=== PATIENT | male | born 1965 | race Caucasian/White ===

== ENCOUNTER 2018-10-17 10:59 | Emergency (ER) | payer BC, MEDICAID ==
[2018-10-17] MEDS ORDERED: Ciproflox/Dexameth OTIC.SUSP* 7.5 ML BTL RIGHT EAR ONE (12:07)
--- NOTE | 2018-10-17 12:07 | ED ---
Throat Pain/Nasal Congestion - HPI Summary HPI Summary: 52-year-old male presents with right ear pain for the past 4 days. He had decreased hearing in his right ear. He states he tried debrox without relief. He denies any sinus congestion. No fevers. No chest pain shortness breath. No other symptoms. Denies any history of ear infections. - History of Current Complaint Chief Complaint: EDEarPain Time Seen by Provider: 10/17/18 11:38 - Allergies/Home Medications Allergies/Adverse Reactions: Allergies Allergy/AdvReac Type Severity Reaction Status Date / Time No Known Allergies Allergy Verified 10/17/18 12:15 PMH/Surg Hx/FS Hx/Imm Hx Endocrine/Hematology History: Denies: Hx Diabetes, Hx Thyroid Disease Cardiovascular History: Denies: Hx Angina, Hx Coronary Artery Disease, Hx Hypercholesterolemia, Hx Hypertension, Hx Myocardial Infarction, Hx Pacemaker/ICD, Hx Peripheral Vascular Disease, Hx Valvular Heart Disease Respiratory History: Denies: Hx Asthma, Hx Chronic Obstructive Pulmonary Disease (COPD) History: Reports: Hx Benign Prostatic Hyperplasia, Other Problems/ Disorders - HX OF ENLARGED PROSTATE Denies: Hx Renal Disease Musculoskeletal History: Reports: Hx Arthritis, Hx Orthopedic Injury - right shoulder, Other Musculoskeletal History - CERVICAL SPONDYLOSIS Denies: Hx Rheumatoid Arthritis, Hx Osteoporosis Sensory History: Reports: Hx Contacts or Glasses Denies: Hx Hearing Aid Opthamlomology History: Reports: Hx Contacts or Glasses Neurological History: Denies: Hx Headaches, Hx Seizures, Hx Transient Ischemic Attacks (TIA) Psychiatric History: Denies: Hx Anxiety, Hx Depression, Hx Panic Disorder - Surgical History Surgery Procedure, Year, and Place: STERNAL SURGERY A CHILD. LEFT KNEE SCOPING 1992, [facility] – [place]. EYE MUSCLE SURGERY A CHILD. LEFT HERNIA REPAIR MANY YRS AGO A CHILD, [facility] – [place]. 12/05/2014 RIGHT CARPAL TUNNEL RELEASE, [facility] [place]. RIGHT SHOULDER 03/2015 REPAIRED BICEP MUSCLE Hx Anesthesia Reactions: No Infectious Disease History: No Infectious Disease History: Denies: Traveled Outside the [place] in Last 30 Days - Social History Alcohol Use: None Substance Use Type: Reports: None Smoking Status (MU): Heavy Every Day Tobacco Smoker Type: Cigarettes Amount Used/How Often: ~1/2 PPD Length of Time of Smoking/Using Tobacco: APPROX 33 YEARS Have You Smoked in the Last Year: Yes Review of Systems Negative: Fever Positive: Ear Ache Negative: Chest Pain Negative: Shortness Of Breath All Other Systems Reviewed And Are Negative: Yes Physical Exam Triage Information Reviewed: Yes Vital Signs On Initial Exam: Initial Vitals Temp Pulse Resp BP Pulse Ox 98.3 F 97 18 121/91 97 10/17/18 11:06 10/17/18 11:06 10/17/18 11:06 10/17/18 11:06 10/17/18 11:06 Vital Signs Reviewed: Yes Appearance: Positive: Well-Appearing Skin: Positive: Warm, Dry Head/Face: Positive: Normal Head/Face Inspection Eyes: Positive: Normal, Conjunctiva Clear ENT: Positive: Pharynx normal, TMs normal, Other - some wax, tenderness tragus, erythema to right ear canal Respiratory/Lung Sounds: Positive: Clear to Auscultation, Breath Sounds Present Cardiovascular: Positive: Normal, RRR Musculoskeletal: Positive: Normal Neurological: Positive: Normal Diagnostics - Vital Signs Vital Signs Temp Pulse Resp BP Pulse Ox 10/17/18 11:06 98.3 F 97 18 121/91 97 - Laboratory Lab Statement: Any lab studies that have been ordered have been reviewed, and results considered in the medical decision making process. EENT Course/Dx - Course Course Of Treatment: 52-year-old male presents with right ear pain for the past 4 days. He had decreased hearing in his right ear. He states he tried debrox without relief. He denies any sinus congestion. No fevers. No chest pain shortness breath. No other symptoms. Denies any history of ear infections. On exam wax present in right ear. ear canal right edematous and erythematous. Tenderness on tragus. Had area irrigated. We'll treat with Ciprodex. Patient understands and agrees with plan. - Differential Diagnoses Differential Diagnoses: Cerumen Impaction, Otitis Externa, Otitis Media - Diagnoses Provider Diagnoses: Otitis externa Discharge - Sign-Out/Discharge Documenting (check all that apply): Patient Departure Patient Received Moderate/Deep Sedation with Procedure: No - Discharge Plan Condition: Good Disposition: HOME Patient Education Materials: Otitis Externa (ED) Referrals: Cadence Weinstein MD [Primary Care Provider] - Additional Instructions: Use 4 drops twice a day for 7 days Take Tylenol or ibuprofen for pain every 6 hours as needed Follow up with primary in a week to make sure resolving Return to ED if develop any new or worsening symptoms - Billing Disposition and Condition Condition: GOOD Disposition: Home - Attestation Statements Provider Attestation: I was available for consult. This patient was seen by the LORE. The patient was not presented to, seen by, or examined by me. -Le
[2018-10-17 13:07] VITALS: BP 130/78
== END 2018-10-17 12:30 | disposition home or self-care (01) ==
LOC: ED 10:59
DX: H60.91 Unspecified otitis externa, right ear (principal); N40.0 Benign prostatic hyperplasia without lower urinary tract symptoms; F17.210 Nicotine dependence, cigarettes, uncomplicated
CPT/HCPCS: 99282; A9270-GY

== ENCOUNTER 2019-03-13 17:49 | Emergency (ER) | payer BC, OTHER ==
--- NOTE | 2019-03-13 18:10 | ED ---
Palpitations / Dysrhythmia - HPI Summary HPI Summary: The patient is a 53 y/o M presenting to [facility] with a chief complaint of fast heart rate this afternoon. He reports that he was at a disability appointment this afternoon when the doctor noticed that he was tahcycardic and hypertensive. The patient states that he didnt feel any different than usual, and he denies any CP or SOB. He notes that he had a previous experience of this where he was at his PCPs office a few months ago where they noticed it as well. No recent travel or surgeries. No current or previous hormone use. 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 No recent changes in pain medications. Current smoker, no EtOH, no substance use. Medications reviewed. Allergies noted. - History of Current Complaint Chief Complaint: EDDysrhythmPalp Time Seen by Provider: 03/13/19 17:58 Hx Obtained From: Patient Severity Currently: Moderate Character: Fast Aggravating: Nothing Alleviating: Nothing Associated Signs & Symptoms: Negative - Allergy/Home Medications Allergies/Adverse Reactions: Allergies Allergy/AdvReac Type Severity Reaction Status Date / Time No Known Allergies Allergy Verified 03/13/19 17:53 PMH/Surg Hx/FS Hx/Imm Hx Endocrine/Hematology History: Denies: Hx Diabetes, Hx Thyroid Disease Cardiovascular History: Denies: Hx Angina, Hx Coronary Artery Disease, Hx Hypercholesterolemia, Hx Hypertension, Hx Myocardial Infarction, Hx Pacemaker/ICD, Hx Peripheral Vascular Disease, Hx Valvular Heart Disease Respiratory History: Denies: Hx Asthma, Hx Chronic Obstructive Pulmonary Disease (COPD) History: Reports: Hx Benign Prostatic Hyperplasia, Other Problems/ Disorders - HX OF ENLARGED PROSTATE Denies: Hx Renal Disease Musculoskeletal History: Reports: Hx Arthritis, Hx Orthopedic Injury - right shoulder, Other Musculoskeletal History - CERVICAL SPONDYLOSIS Denies: Hx Rheumatoid Arthritis, Hx Osteoporosis Sensory History: Reports: Hx Contacts or Glasses Denies: Hx Hearing Aid Opthamlomology History: Reports: Hx Contacts or Glasses Neurological History: Denies: Hx Headaches, Hx Seizures, Hx Transient Ischemic Attacks (TIA) Psychiatric History: Denies: Hx Anxiety, Hx Depression, Hx Panic Disorder - Surgical History Surgical History: Yes Surgery Procedure, Year, and Place: STERNAL SURGERY A CHILD. LEFT KNEE SCOPING 1992, [facility] – [place]. EYE MUSCLE SURGERY A CHILD. LEFT HERNIA REPAIR MANY YRS AGO A CHILD, [facility]. 12/05/2014 RIGHT CARPAL TUNNEL RELEASE, [facility]. RIGHT SHOULDER 03/2015 REPAIRED BICEP MUSCLE Hx Anesthesia Reactions: No Infectious Disease History: No Infectious Disease History: Denies: Traveled Outside the [place] in Last 30 Days - Family History Known Family History: Negative: Diabetes - Social History Alcohol Use: None Hx Substance Use: No Substance Use Type: Reports: None Hx Tobacco Use: Yes Smoking Status (MU): Light Every Day Tobacco Smoker Type: Cigarettes Amount Used/How Often: ~1/2 PPD Length of Time of Smoking/Using Tobacco: APPROX 33 YEARS Have You Smoked in the Last Year: Yes Review of Systems Positive: Other - fast heart rate. Negative: Chest Pain Negative: Shortness Of Breath All Other Systems Reviewed And Are Negative: Yes Physical Exam - Summary Physical Exam Summary: Constitutional: Well-developed, Well-nourished, Alert. (-) Distressed Skin: Warm, Dry HENT: Normocephalic; Atraumatic Eyes: Conjunctiva normal Neck: Musculoskeletal ROM normal neck. (-) JVD, (-) Stridor, (-) Tracheal deviation Cardio: Tachycardia, Heart sounds normal; Intact distal pulses; Radial pulses are 2+ and symmetric. (-) Murmur Pulmonary/Chest wall: Effort normal. Severe pectus excavatum. (-) Respiratory distress, (-) Wheezes, (-) Rales Abd: Soft, (-) tenderness, (-) Distension, (-) Guarding, (-) Rebound Musculoskeletal: (-) Edema Lymph: (-) Cervical adenopathy Neuro: Alert, Oriented x3 Psych: Mood and affect Normal Triage Information Reviewed: Yes Vital Signs On Initial Exam: Initial Vitals Temp Pulse Resp BP Pulse Ox 98.0 F 91 14 145/98 96 03/13/19 17:50 03/13/19 17:50 03/13/19 17:50 03/13/19 17:50 03/13/19 17:50 Vital Signs Reviewed: Yes Procedures - Sedation Patient Received Moderate/Deep Sedation with Procedure: No Diagnostics - Vital Signs Vital Signs Temp Pulse Resp BP Pulse Ox 03/13/19 17:50 98.0 F 91 14 145/98 96 - Laboratory Result Diagrams: 03/13/19 18:47 03/13/19 18:47 Lab Statement: Any lab studies that have been ordered have been reviewed, and results considered in the medical decision making process. - Radiology CXR Radiology Interpretation Completed By: ED Physician Summary of Radiographic Findings: Obscured right heart border with an abnormal- appearing right diaphragm. ED physician has reviewed and interpreted this report. Pending official read. - CT Chest CT CT Interpretation Completed By: Radiologist Summary of CT Findings: Impression: 1. 2.3 cm indeterminate left adrenal nodule containing punctate calcifications. Further evaluation can be performed on a nonemergent basis with an adrenal protocol CT abdomen without and with intravenous contrast using 70-second and 15-minute scan delays after the administration of the intravenous contrast. ED physician has reviewed this report. 2. Severe pectus excavatum deformity with a Kimberly index of 4.53. ED physician has reviewed this report. - EKG 1756 Cardiac Rate: NL - 118 bpm EKG Rhythm: Sinus Tachycardia Summary of EKG Findings: Sinus tachycardia that is irregular. Different morphology of P waves. No obvious dropped beats. Most likely ectopic atrial tachycardia. ED physician has reviewed and interpreted this EKG. Re-Evaluation - Re-Evaluation First Eval Re-Evaluation Time: 20:55 Comment: We discussed results and plan for discharge. Course/Dx - Course Course Of Treatment: Patient is here with an abnormal EKG. Patient was told he had an abnormal heart rate in January by his painter set. Patient was also told today by his social security doctor. Patient is asymptomatic. Patient had an EKG which showed a narrow complex tachycardia which was irregular. Patient had P waves prior to every QRS complex there were not all of the same morphology. Patient had no obvious dropped beats. Patient had buttock for which showed a normal thyroid level, normal lites, negative d- dimer. Patient had chest x-ray which was concerning for underlying mass especially in the setting of his ectopic atrial tachycardia. Patient suffers from CT scan which showed no lung mass. Patient does have an adrenal mass which she was made aware of by myself and told needs to follow up with his primary care doctor for further evaluation of that. Patient was started on metoprolol for his tachycardia. Patient was discharged with cardiology follow- up. - Diagnoses Provider Diagnoses: Arrhythmia, Tachycardia, Pectus excavatum Discharge ED - Sign-Out/Discharge Documenting (check all that apply): Patient Departure - Patient will be discharged home. - Discharge Plan Condition: Stable Disposition: HOME Prescriptions: Metoprolol Tartrate TAB* [Lopressor TAB*] 25 mg PO BID 30 Days #60 tab Patient Education Materials: Atrial Tachycardia (ED) Referrals: Ernst Valiente MD [Primary Care Provider] - 3 Days Betr Howell MD [Medical Doctor] - 3 Days Additional Instructions: Take your Metoprolol as prescribed. Follow up with Dr. Howell from cardiology. Also follow up with your primary care provider in 1-3 days. Come back to the emergency department if you have any worsening chest pain, trouble breathing, or any other concerning symptoms. - Billing Disposition and Condition Condition: STABLE Disposition: Home - Attestation Statements Document Initiated by Bryn: Yes Documenting Scribe: Kierra Rosenthal Provider For Whom Bryn is Documenting (Include Credential): Dr. Jesus Flores MD Scribe Attestation: Kierra Gtz scribed for Dr. Jesus Flores MD on 03/13/19 at 2100. Scribe Documentation Reviewed: Yes Provider Attestation: The documentation as recorded by the Kierra delgado accurately reflects the service I personally performed and the decisions made by me, Dr. Jesus Flores MD Status of Scribtacos Document: Viewed
[2019-03-13] MEDS ORDERED: NS 0.9% 1000 ML** 1,000 ML IV ONE (18:43)
[2019-03-13 18:55] LABS: ABS Basophils 0.1 10^3/ul (0-0.2); ABS Eosinophils 0.2 10^3/ul (0-0.6); ABS Lymphocytes 2.1 10^3/ul (1.0-4.8); ABS Monocytes 0.7 10^3/ul (0-0.8); Eosinophil % 1.6 %; Hematocrit 42 % (42-52); Hemoglobin 14.3 g/dL (14.0-18.0); Lymphocyte % 20.9 %; Mean Corpuscular HGB Conc 35 g/dL (31-36); Mean Corpuscular Hemoglobin 32 pg (27-31); Mean Corpuscular Volume 94 fL (80-94); Mean Platelet Volume 9.1 fL (7.4-10.4); Platelet Count 226 10^3/uL (150-450); Red Blood Count 4.43 10^6 /uL (4.18-5.48); Red Cell Distribution Width 13 % (10-15); White Blood Count 10.1 10^3/uL (3.5-10.8)
[2019-03-13 19:11] LABS: Albumin 4.4 g/dL (3.2-5.2); Albumin/Globulin Ratio 2.1 (1-3); BUN/Creatinine Ratio 20.8 (8-20); Calcium 8.9 mg/dL (8.6-10.3); EGFR African American 98.4 (>60); EGFR Non-African American 81.3 (>60); Globulin 2.1 g/dL (2-4); Magnesium 1.9 mg/dL (1.9-2.7); Potassium 4.8 mmol/L (3.5-5.0); Total Bilirubin 0.3 mg/dL (0.2-1.0); Total Protein 6.5 g/dL (6.4-8.9); Troponin I 0.01 ng/mL (<0.03)
[2019-03-13] MEDS ORDERED: Iohexol 300* (CONTRAST) 10 ML SDV IV ONE (19:47)
[2019-03-13] MEDS ORDERED: Metoprolol Tartrate TAB* 25 MG PO ONE (20:11)
[2019-03-13 21:13] VITALS: BP 125/71
== END 2019-03-13 21:16 | disposition home or self-care (01) ==
LOC: ED 17:49
DX: I49.9 Cardiac arrhythmia, unspecified (principal); R00.0 Tachycardia, unspecified; Q67.6 Pectus excavatum; R94.31 Abnormal electrocardiogram [ECG] [EKG]
CPT/HCPCS: 36415; 71045; 71260; 80053; 83605; 83735; 84484; 85025; 85379; 93005; 99283; Q9967